=== PATIENT | female | born 1980 | race Caucasian/White ===

== ENCOUNTER 2020-07-11 14:46 | Emergency (ER) | payer OTHER ==
[~2020-07-11] VITALS: Ht 170.2 cm; Wt 105.0 kg
[2020-07-11] MEDS ORDERED: FAMOTIDINE 20 MG/2 ML VIAL IVP ONE (15:15)
[2020-07-11] MEDS ORDERED: ONDANSETRON PF 4 MG/2 ML VIAL. IVP ONE (15:15)
[2020-07-11] MEDS ORDERED: IV NORMAL SALINE 1,000ML 1,000 ML IV ONE (15:15)
[2020-07-11] MEDS ORDERED: IOHEXOL 240 MG/ML 50ML VIAL. ONE (15:28)
[2020-07-11 15:44] LABS: BASO % 1 % (0-3); EOS # 0.2 x10^3/uL (0.0-0.7); EOS % 3 % (0-3); HEMATOCRIT 32.1 % (36.0-47.0); HEMOGLOBIN 10.1 g/dL (12.0-15.5); LYMPH # 1.3 x10^3/uL (1.0-4.8); LYMPH % 26 % (24-48); MEAN CORPUSCULAR HEMOGLOBIN 25 pg (25-35); MEAN CORPUSCULAR HGB CONC 32 g/dL (31-37); MEAN CORPUSCULAR VOLUME 79 fL (79-100); MONO # 0.6 x10^3/uL (0.0-1.1); MONO % 12 % (0-9); NEUT # 2.8 x10^3uL (1.8-7.7); NEUT % 57 % (31-73); PLATELET COUNT 353 x10^3/uL (140-400); RED BLOOD COUNT 4.06 x10^6/uL (3.50-5.40); RED CELL DISTRIBUTION WIDTH 14.3 % (11.5-14.5)
[2020-07-11] MEDS ORDERED: IOHEXOL 240 MG/ML 50ML VIAL. PO ONE (15:45)
[2020-07-11] MEDS ORDERED: IOHEXOL 300 MG/ML 75 ML VIAL. IV ONE (15:45)
[2020-07-11 16:00] LABS: CALCIUM 8.6 mg/dL (8.5-10.1); CREATININE 0.6 mg/dL (0.6-1.0); GFR 109.6; POTASSIUM 3.2 mmol/L (3.5-5.1)
[2020-07-11 16:07] LABS: ALBUMIN 3.4 g/dL (3.4-5.0); ALBUMIN/GLOBULIN RATIO 0.9 (1.0-1.7); TOTAL BILIRUBIN 0.4 mg/dL (0.2-1.0); TOTAL PROTEIN 7.4 g/dL (6.4-8.2)
--- NOTE | 2020-07-11 16:25 | PHYS DOC ---
Past History Past Medical History: Bipolar, Other Additional Past Medical Histor: Borderline personality disorder. Past Surgical History: Cholecystectomy, , Gastric Bypass, Tonsillectomy Additional Past Surgical Histo: Panniculectomy, laparoscopic left hernia repair with mesh, breast reduction Smoking: Non-smoker Alcohol Use: None Drug Use: None General Adult EDM: Chief Complaint: ABDOMINAL PAIN HPI: HPI: 40-year-old female presents with report of left lower quadrant abdominal/pelvic pain and distention that patient noticed since last night. Reports history of left inguinal hernia repair laparoscopically with mesh. Patient seen at urgent care with concern for possible recurrence of inguinal hernia and sent to the emergency department for evaluation. Patient denies any fever or chills. Denies known trauma. Review of Systems: Review of Systems: Constitutional: Denies fever or chills Eyes: Denies redness or eye pain HENT: Denies nasal congestion or sore throat Respiratory: Denies cough or shortness of breath Cardiovascular: Denies chest pain or palpitations GI: Reports left lower abdominal pain and fullness; denies nausea, vomiting, diarrhea, or constipation : Denies dysuria or hematuria Musculoskeletal: Denies back pain or joint pain Integument: Denies rash or skin lesions Neurologic: Denies headache, focal weakness or sensory changes Complete systems were reviewed and found to be within normal limits, except as documented in this note. Current Medications: Current Meds: Current Medications Medications (Trade) Dose Ordered Sig/Mazin Start Time Stop Time Status Last Admin Dose Admin Famotidine (Pepcid Vial) 20 mg 1X ONCE 07/11/20 15:15 07/11/20 15:20 DC 07/11/20 15:35 20 MG Iohexol (Omnipaque 240 Mg/ml) 50 ml 1X ONCE 07/11/20 15:45 07/11/20 15:46 DC 07/11/20 16:23 50 ML Iohexol (Omnipaque 300 Mg/ml) 75 ml 1X ONCE 07/11/20 15:45 07/11/20 15:46 DC 07/11/20 16:23 75 ML Ondansetron HCl (Zofran) 4 mg 1X ONCE 07/11/20 15:15 07/11/20 15:20 DC 07/11/20 15:35 4 MG Sodium Chloride 1,000 ml @ 1,000 mls/hr 1X ONCE 07/11/20 15:15 07/11/20 16:14 DC 07/11/20 15:35 1,000 MLS/HR Allergies: Allergies: Allergies Coded Allergies Type Severity Reaction Last Updated Verified No Known Drug Allergies 07/11/20 No Physical Exam: PE: Constitutional: Well developed, overweight, no acute distress, uncomfortable, non-toxic appearance HENT: Normocephalic, atraumatic Eyes: Conjunctiva normal, no discharge Neck: Normal range of motion, supple Lungs & Thorax: No respiratory distress, equal chest rise and fall Abdomen: Soft, left pelvic bulge which is focally tender and nonreducible Skin: Warm, dry, no erythema, no rash Back: No tenderness, no CVA tenderness Extremities: No tenderness, ROM intact, no edema Neurologic: Alert and oriented X 3, no focal deficits noted Psychologic: Affect normal, judgment normal Current Patient Data: Labs: Laboratory Tests Test 07/11/20 15:05 White Blood Count 5.0 x10^3/uL (4.0-11.0) Red Blood Count 4.06 x10^6/uL (3.50-5.40) Hemoglobin 10.1 g/dL (12.0-15.5) L Hematocrit 32.1 % (36.0-47.0) L Mean Corpuscular Volume 79 fL (79-100) Mean Corpuscular Hemoglobin 25 pg (25-35) Mean Corpuscular Hemoglobin Concent 32 g/dL (31-37) Red Cell Distribution Width 14.3 % (11.5-14.5) Platelet Count 353 x10^3/uL (140-400) Neutrophils (%) (Auto) 57 % (31-73) Lymphocytes (%) (Auto) 26 % (24-48) Monocytes (%) (Auto) 12 % (0-9) H Eosinophils (%) (Auto) 3 % (0-3) Basophils (%) (Auto) 1 % (0-3) Neutrophils # (Auto) 2.8 x10^3uL (1.8-7.7) Lymphocytes # (Auto) 1.3 x10^3/uL (1.0-4.8) Monocytes # (Auto) 0.6 x10^3/uL (0.0-1.1) Eosinophils # (Auto) 0.2 x10^3/uL (0.0-0.7) Basophils # (Auto) 0.0 x10^3/uL (0.0-0.2) Sodium Level 140 mmol/L (136-145) Potassium Level 3.2 mmol/L (3.5-5.1) L Chloride Level 104 mmol/L (98-107) Carbon Dioxide Level 26 mmol/L (21-32) Anion Gap 10 (6-14) Blood Urea Nitrogen 22 mg/dL (7-20) H Creatinine 0.6 mg/dL (0.6-1.0) Estimated GFR (Cockcroft-Gault) 109.6 BUN/Creatinine Ratio 37 (6-20) H Glucose Level 98 mg/dL (70-99) Calcium Level 8.6 mg/dL (8.5-10.1) Total Bilirubin 0.4 mg/dL (0.2-1.0) Aspartate Amino Transferase (AST) 27 U/L (15-37) Alanine Aminotransferase (ALT) 38 U/L (14-59) Alkaline Phosphatase 109 U/L (46-116) Total Protein 7.4 g/dL (6.4-8.2) Albumin 3.4 g/dL (3.4-5.0) Albumin/Globulin Ratio 0.9 (1.0-1.7) L Lipase 190 U/L (73-393) Vital Signs: Vital Signs Date Time Temp Pulse Resp B/P (MAP) Pulse Ox O2 Delivery O2 Flow Rate FiO2 5/5/21 15:02 98.2 74 18 109/71 (84) 99 EKG: EKG: [] Radiology/Procedures: Radiology/Procedures: PROCEDURE: CT ABD PELV W/ORAL&IV CONTRAST Exam: CT of abdomen and pelvis with contrast INDICATION: Left lower quadrant pain TECHNIQUE: Sequential axial images through the abdomen and pelvis obtained following the administration of 75 mL of Omni 300 IV contrast. Sagittal and coronal reformatted images were reconstructed from the axial data and reviewed. Exposure: One or more of the following in the visualized dose reduction techniques were utilized for this examination: 1. Automated exposure control 2. Adjustment of the MA and/or KV according to patient size 3. Use of iterative of reconstructive technique Comparisons: None FINDINGS: Heart size is normal. No pericardial effusion. Visualized lung bases are clear. No pleural effusion. Liver, spleen, pancreas, and adrenals are unremarkable. Gallbladder surgically absent. No perinephric inflammation or hydronephrosis. No renal or ureteral calculi are identified. Bladder is partially distended and appears thin-walled. Uterus is not enlarged. No abnormal adnexal mass. Large and small bowel are unremarkable. Appendix is normal. No free intra-abdominal air or fluid. No obstruction. Abdominal aorta has a normal course and caliber. Abdominal vasculature is patent. No enlarged intra-abdominal lymph nodes are identified. There is a peripherally enhancing fluid collection at the left lower quadrant anterior abdominal wall which measures approximately 4.0 x 1.6 cm in transverse dimension and approximately 2.6 cm in craniocaudal dimension. Adjacent stranding and edema is also noted. Extensive amounts of stranding seen extending into the left inguinal region. With likely a small tubular fluid component. No suspicious osseous lesions or acute fractures. IMPRESSION: Abscess at the anterior abdominal wall in the left lower quadrant which measures approximately 4.0 x 1.6 cm in transverse dimension which has a tubular compone nt which extends down into the left inguinal region. Extensive stranding and edema. No intra-abdominal extension is identified. Electronically signed by: Oskar Junior MD (07/11/2020 4:47 PM) [facility] Heart Score: C/O Chest Pain: N/A Course & Med Decision Making: Course & Med Decision Making Pertinent Labs and Imaging studies reviewed. (See chart for details) Patient presents with 1 day history of left lower quadrant/pelvic bulge with focal tenderness concerning for possible recurrence of left inguinal hernia. Pain meds initially offered which patient declined. IV fluid hydration given. Labs obtained and posted to chart. CT abdomen/pelvis obtained with findings consistent for abdominal wall abscess with tracking down near left inguinal region. Cannot exclude mesh involvement given history of prior inguinal repair. No external focal abscess appreciated. Given depth and location of abscess decision to hold bedside I&D as patient requires surgical consult. Empiric antibiotics initiated. WBC and lactic acid within normal limits. Blood cultures pending. UA also with signs of infection. Hypokalemia addressed with p.o. potassium as patient does not require emergent surgical intervention. Patient subsequently requesting pain medication which was provided. Patient requiring transfer for admission to facility with general surgery capability for further evaluation and treatment. Discussed with Dr. Worthington (hospitalist) who is in agreement with transfer to [facility] for admission. Discussed findings and plan with patient and spouse, who acknowledge understanding and agreement. Yoav Disclaimer: Yoav Disclaimer: This electronic medical record was generated, in whole or in part, using a voice recognition dictation system. Departure Departure: Impression: Primary Impression: Abdominal wall abscess Additional Impressions: UTI (urinary tract infection) Qualified Codes: N30.00 - Acute cystitis without hematuria Hypokalemia Disposition: 02 SHORT TERM HOSPITAL ([facility]- Dr. Worthington) Admitting Physician: King Worthington Condition: STABLE Referrals: LINETTE KURTZ DO, MPH (PCP) KAREN ARSHAD DO July 11, 2020 16:25
[2020-07-11 16:34] LABS: BILIRUBIN,URINE NEG (NEG); CLARITY,URINE CLEAR; COLOR,URINE YELLOW; GLUCOSE,URINE NEG (NEG)
[2020-07-11 16:35] LABS: NITRITE,URINE POS (NEG)
[2020-07-11 16:36] LABS: BACTERIA,URINE MOD /HPF (0-FEW)
--- NOTE | 2020-07-11 16:50 | RAD ---
Exam: CT of abdomen and pelvis with contrast INDICATION: Left lower quadrant pain TECHNIQUE: Sequential axial images through the abdomen and pelvis obtained following the administrati on of 75 mL of Omni 300 IV contrast. Sagittal and coronal reformatted images were reconstructed from the axial data and reviewed. Exposure: One or more of the following in the visualized dose reduction techniques were utilized for this examination: 1. Automated exposure control 2. Adjustment of the MA and/or KV according to patient size 3. Use of iterative of reconstructive technique Comparisons: None FINDINGS: Heart size is normal. No pericardial effusion. Visualized lung bases are clear. No pleural effusion. Liver, spleen, pancreas, and adrenals are unremarkable. Gallbladder surgically absent. No perinephric inflammation or hydronephrosis. No renal or ureteral calculi are identified. Bladder is partially distended and appears thin-walled. Uterus is not enlarged. No abnormal adnexal m ass. Large and small bowel are unremarkable. Appendix is normal. No free intra-abdominal air or fluid . No obstruction. Abdominal aorta has a normal course and caliber. Abdominal vasculature is patent. No enlarged intra-abdominal lymph nodes are identified. There is a peripherally enhancing fluid collection at the left lower quadrant anterior abdominal wall which measures approximately 4.0 x 1.6 cm in transverse dimension and approximately 2.6 cm in cranio caudal dimension. Adjacent stranding and edema is also noted. Extensive amounts of stranding seen ext ending into the left inguinal region. With likely a small tubular fluid component. No suspicious osseous lesions or acute fractures. IMPRESSION: Abscess at the anterior abdominal wall in the left lower quadrant which measures approximately 4.0 x 1.6 cm in transverse dimension which has a tubular component which extends down into the left inguina l region. Extensive stranding and edema. No intra-abdominal extension is identified. Electronically signed by: Oskar Junior MD (07/11/2020 4:47 PM) [facility]
[2020-07-11] MEDS ORDERED: PIPERACILLIN/TAZOBACTAM 3.375 GM in IV NORMAL SALINE 50ML 50 ML IV ONE (18:30)
[2020-07-11] MEDS ORDERED: IV NORMAL SALINE 50ML 50 ML ONE (18:54)
[2020-07-11] MEDS ORDERED: PIPERACILLIN/TAZOBACTAM 3.375 GM VIAL IV ONE (18:54)
[2020-07-11] MEDS ORDERED: POTASSIUM CHLORIDE 10 MEQ TABLET.ER. PO ONE (19:00)
[2020-07-11 20:30] VITALS: BP 94/57
== END 2020-07-11 20:50 | disposition short-term general hospital (02) ==
LOC: ER 14:46
DX: N30.00 Acute cystitis without hematuria (principal); E87.6 Hypokalemia; L02.211 Cutaneous abscess of abdominal wall; F31.9 Bipolar disorder, unspecified; Z90.49 Acquired absence of other specified parts of digestive tract; Z98.890 Other specified postprocedural states; Z98.84 Bariatric surgery status
CPT/HCPCS: 36415; 74177; 80053; 81001; 83605; 83690; 85025; 85610; 85730; 87040; 87086; 96361; 96365; 96375; 99285; J2405; J2543; J3010; J3490; J7030; Q9966; Q9967

== ENCOUNTER → 2020-10-02 | Outpatient (CLI) | payer MEDICAID ==
[~2020-10-02] MED LIST: IOHEXOL 300 MG/ML 75 ML VIAL. IV ONE
--- NOTE | 2020-10-02 09:07 | RAD ---
Examination: CT of the pelvis with IV contrast HISTORY: History of left-sided pain, history of inguinal hernia COMPARISON: 07/11/2020 TECHNIQUE: Axial CT images of the pelvis were performed with IV contrast. Coronal and sagittal reform ats are performed Exposure: One or more of the following individualized dose reduction techniques were utilized for thi s examination: 1. Automated exposure control 2. Adjustment of the mA and/or kV according to patient size 3. Use of iterative reconstruction technique FINDINGS: The visualized bilateral kidneys grossly appears unremarkable. The small bowel is nondilated. The rosalia endix is normal. Feces and gas noted in the colon. The previously visualized abscess in the left lowe r abdominal wall involving the lateral aspect of the left rectus abdominis muscle is decreased in in size and fluid collection with the fat stranding and soft tissue thickening with minimal fluid extend ing into the left inguinal canal. Mild inflammatory fat stranding identified in the left groin region which is decreased since prior exam IMPRESSION: The previously visualized abscess in the left lower abdominal wall involving the lateral aspect of th e left rectus abdominis muscle is decreased in size and fluid collection with fat stranding and soft tissue thickening with minimal fluid extending into the left inguinal canal. Mild inflammatory fat st randing identified in the left groin region has decreased since prior exam. Electronically signed by: Marquise Erwin MD (10/02/2020 9:05 AM) [id number]
== END ==
LOC: CT 08:18
PROVIDERS: ATTEND Surgery
DX: L02.214 Cutaneous abscess of groin (principal); R10.30 Lower abdominal pain, unspecified
CPT/HCPCS: 72193; Q9967

== ENCOUNTER → 2021-05-09 | Outpatient (CLI) | payer MEDICAID, OTHER ==
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
== END ==
LOC: RAD 14:41
PROVIDERS: ATTEND Family Medicine
DX: M77.32 Calcaneal spur, left foot (principal); M53.3 Sacrococcygeal disorders, not elsewhere classified
CPT/HCPCS: 72202; 73650